=== PATIENT | female | born 1945 | race Caucasian/White ===

== ENCOUNTER 2016-12-15 12:50 | Inpatient (IN) | payer MEDICARE, OTHER ==
[~2016-12-15] VITALS: Ht 152.4 cm; Wt 63.9 kg
[~2016-12-15 12:50] MED LIST: BAYER CHEWABLE81 MG PO; BIOTIN5 MG PO; CRESTOR10 MG PO; GLUCOPHAGE1000 MG PO; HYDROCHLOROTHIA25 MG PO; METOPROLOL TART50 MG PO; OXYBUTYNIN CHLOR5 MG PO; PEPCID20 MG PO; VITAMIN D5000 UNIT PO; ZYRTEC10 MG PO
--- NOTE | 2016-12-15 13:01 | NUR ---
TRANSFERED FROM ADMISSIONS BY W/C. OREINTED TO ROOM. CALL LIGHT IN REACH. WILL CONT. PLAN OF CARE.
[2016-12-15] MEDS ORDERED: NORVASC10 MG PO (13:03)
[2016-12-15] MEDS ORDERED: GLUCOTROL 5 MG T5 MG PO (13:05)
[2016-12-15] MEDS ORDERED: COZAAR100 MG PO (13:06)
[2016-12-15] MEDS ORDERED: K-TAB10 MEQ PO (13:10)
[2016-12-15] MEDS ORDERED: VITAMIN B-1000 MCG/M IM (13:12)
[2016-12-15 13:26] VITALS: BP 96/50; BMI 26.4
[2016-12-15 15:47] LABS: BASOPHILS 0.1 % (0-2); HEMATOCRIT 31.9 % (36.0-48.0); HEMOGLOBIN 10.2 g/dL (12-16); IMMATURE GRANULOCYTES 0.3 % (0-5); LYMPHOCYTES 8.6 % (15-50); MCH 25.9 pg (26.0-34.0); MONOCYTES 3.7 % (2-11); NEUTROPHILS 86.3 % (40-80); PLATELET COUNT 418 10x3/uL (130-400); RBC 3.94 10x6/uL (4.00-5.40); RDW 15.4 % (11.5-14.5); WBC 15.6 10x3/uL (4.8-10.8)
[2016-12-15 16:00] VITALS: BP 99/49
[2016-12-15 16:32] LABS: ALBUMIN 2.3 g/dL (3.4-5.0); ANION GAP 15.2 mmol/L (8-16); BILIRUBIN - TOTAL 0.25 mg/dL (0.2-1.3); CARBON DIOXIDE 24.7 mmol/L (21.0-32.0); CREATININE - SERUM 1.7 mg/dL (0.6-1.3); POTASSIUM - SERUM 3.9 mmol/L (3.5-5.1); PROTEIN - SERUM 7.2 g/dL (6.4-8.2)
[2016-12-15 16:52] LABS: CALCIUM 12.5 mg/dL (8.5-10.1)
[2016-12-15 21:05] VITALS: BP 110/53
--- NOTE | 2016-12-15 22:35 | NUR ---
FSBS 36 - PT IS ASYMPTOMATIC. PT SITTING UP IN BED EATING TURKEY SANDWICH, MILK AND DAHLIA CRACKERS. REPORT GIVEN TO MELVA HATFIELD TO TAKE OVER CARE OF PT. FSBS RECHECKED - 80. PT CONTINUING TO EAT DAHLIA CRACKERS AND MILK. MELVA HATFIELD WILL CONTINUE TO MONITOR.
--- NOTE | 2016-12-15 23:44 | NUR ---
BS RECHECK, 80. PT STATED THAT SHE WAS UNABLE TO EAT THE TURKEY SANDWHICH THAT WAS GIVEN TO HER EARLIER, PT REQUESTING MORE MILK AND GRAHM CRACKERS. GRAHM CRACKERS, MILK AND PEANUTBUTTER GIVEN. WILL CONT TO MONITOR.
[2016-12-16 01:17] VITALS: BP 110/63
--- NOTE | 2016-12-16 04:07 | NUR ---
RESTING WITH EYES CLOSED, RESPERATIONS EVEN, NO S/S DISTRESS NOTED
[2016-12-16 05:10] LABS: BASOPHILS 0.2 % (0-2); EOSINOPHILS 2.6 % (0-7); HEMATOCRIT 28.3 % (36.0-48.0); HEMOGLOBIN 8.9 g/dL (12-16); IMMATURE GRANULOCYTES 0.2 % (0-5); LYMPHOCYTES 11.6 % (15-50); MCH 25.6 pg (26.0-34.0); MCHC 31.4 g/dL (31.0-37.0); MCV 81.3 fL (80.0-100.0); MEAN PLATELET VOLUME 10.7 fL (7.4-10.4); MONOCYTES 7.2 % (2-11); NEUTROPHILS 78.2 % (40-80); PLATELET COUNT 401 10x3/uL (130-400); RBC 3.48 10x6/uL (4.00-5.40); RDW 15.5 % (11.5-14.5); WBC 13.2 10x3/uL (4.8-10.8)
[2016-12-16 05:28] VITALS: BP 90/42
[2016-12-16 05:52] LABS: ANION GAP 12.8 mmol/L (8-16); BILIRUBIN - TOTAL 0.2 mg/dL (0.2-1.3); CARBON DIOXIDE 24.4 mmol/L (21.0-32.0); CREATININE - SERUM 1.7 mg/dL (0.6-1.3); POTASSIUM - SERUM 4.2 mmol/L (3.5-5.1); PROTEIN - SERUM 6.1 g/dL (6.4-8.2)
[2016-12-16 05:53] LABS: CALCIUM 12.1 mg/dL (8.5-10.1)
--- NOTE | 2016-12-16 06:12 | NUR ---
LAB CALLED BS RESULT OF 62, MORNING SNACK PROVIDED. WILL CONT TO MONITOR.
--- NOTE | 2016-12-16 07:35 | NUR ---
PT IN BED WATCHING TV. IV TO LEFT WRIST NS@ 100CC/HR. DENIES PAIN AT THIS TIME. O2 @ 2 LITERS PER NC. PT ATE ALL OF HER SNACK BEFORE BREAKFAT AND SAYS SHE FEELS BETTER. NO C/O VOICED. SR UP X 2 C/L IN REACH. WILL MONITOR.
[2016-12-16 08:02] VITALS: BP 113/51
--- NOTE | 2016-12-16 08:50 | NUR ---
UP SOB EATING BRK. IV PATENT. CALL LIGHT N REACH. WILL CONT. PLAN OF CARE.
[2016-12-16 11:32] VITALS: Ht 152.4 cm; Wt 63.9 kg
[2016-12-16 12:33] VITALS: BP 129/51
[2016-12-16 16:26] VITALS: BP 117/55
--- NOTE | 2016-12-16 19:21 | NUR ---
INITIAL ROUNDS COMPELTED. PT DENIES ANY DISCOMFORT. BED ALARM ON. SR UP X2,CALL LIGHT WITHIN REACH.
[2016-12-16 20:16] VITALS: BP 127/72
--- NOTE | 2016-12-16 20:17 | NUR ---
ADMISSION ASSESSMENT COMPLETED. PT ALERT, ORIENTED TO PERSON AND PLACE. REORIENTED TO TIME AND SITUATION. PT REPEATS CONVERSATION. LUNGS DIMINISHED IN BASES BILAT. NO IV ON INITIAL ROUNDS. IV STARTED #20 TO RFA WITH ATTEMTT X1. PT TOLERATED ACTIVITY WELL. PT REFUSES IV FLUID. PM FSBS 128. NO COVERAGE NEEDED. BED ALARM ON. WILL CONTINUE TO MONITOR. SR UP X2, CALL LIGHT WITHIN REACH.
--- NOTE | 2016-12-16 21:16 | NUR ---
PM FSBS 128. NO COVERAGE NEEDED. PM MEDS GIVEN. ASSISTED PT TO BR. VOIDED MODERATE AMOUNT OF URINE. ASSISTED BACK TO BED. PM SNACK SERVED. WILL CONTINUE TO MONITOR. SR UP X2, CALL LIGHT WITHIN REACH AND BED ALARM ON.
--- NOTE | 2016-12-16 23:47 | NUR ---
PT RESTING WITH EYES CLOSED. RESP EVEN AND REGULAR. SR UP X2, CALL LIGHT WITHIN REACH AND BED ALARM ON.
[2016-12-17 00:02] VITALS: BP 115/48
--- NOTE | 2016-12-17 02:13 | NUR ---
PT RESTING WITH EYES CLOSED. RESP EVEN AND REGULAR. SR UP X2, CALL LIGHT WITHIN REACH.
[2016-12-17 04:50] VITALS: BP 110/50
--- NOTE | 2016-12-17 05:01 | NUR ---
PT RESTING WITH EYES CLOSED. RESP EVEN AND REGULAR. SR UP X2, CALL LIGHT WITHIN REACH AND BED ALARM ON.
--- NOTE | 2016-12-17 06:16 | NUR ---
VSS THROUGHUT NIGHT. PT DENIED ANY DISCOMFORT. NEEDS MET; WILL CONTINUE TO MONITOR.
[2016-12-17 06:46] LABS: BASOPHILS 0.2 % (0-2); EOSINOPHILS 3.4 % (0-7); HEMATOCRIT 25.2 % (36.0-48.0); IMMATURE GRANULOCYTES 0.2 % (0-5); LYMPHOCYTES 12.4 % (15-50); MCH 25.6 pg (26.0-34.0); MCHC 31.7 g/dL (31.0-37.0); MCV 80.8 fL (80.0-100.0); MEAN PLATELET VOLUME 10.4 fL (7.4-10.4); MONOCYTES 7.9 % (2-11); NEUTROPHILS 75.9 % (40-80); PLATELET COUNT 346 10x3/uL (130-400); RBC 3.12 10x6/uL (4.00-5.40); RDW 15.4 % (11.5-14.5)
[2016-12-17 06:47] LABS: WBC 9.7 10x3/uL (4.8-10.8)
[2016-12-17 06:58] LABS: ALBUMIN 1.9 g/dL (3.4-5.0); ANION GAP 11.3 mmol/L (8-16); BILIRUBIN - TOTAL 0.2 mg/dL (0.2-1.3); CALCIUM 11.1 mg/dL (8.5-10.1); CARBON DIOXIDE 24.8 mmol/L (21.0-32.0); CREATININE - SERUM 1.5 mg/dL (0.6-1.3); POTASSIUM - SERUM 4.1 mmol/L (3.5-5.1); PROTEIN - SERUM 5.8 g/dL (6.4-8.2)
--- NOTE | 2016-12-17 07:30 | NUR ---
AM ROUNDS- PT UP TO SIDE OF BED, RECEIVING UPDRAFT, RESP EVEN AND UNLABORED. RT FA IV SL. BED LOW AND WHEELS LOCKED, BEDSIDE RAILS X2. PT DENIES ANY NEEDS AT THIS TIME. CALL LIGHT IN REACH, NAD NOTED, WILL CONTINUE PLAN OF CARE.
[2016-12-17 08:47] VITALS: BP 106/49
--- NOTE | 2016-12-17 09:33 | NUR ---
AM MEDS GIVEN. PT UP TO SIDE OF BED, DENIES ANY NEEDS AT THIS TIME. CALL LIGHT IN REACH, NAD NOTED, WILL CONTINUE TO MONITOR.
--- NOTE | 2016-12-17 11:20 | NUR ---
BLOOD SUGAR OF 276, 10UNITS OF HUMALOG GIVEN PER S/S. PT DENIES ANY NEEDS AT THIS TIME. CALL LIGHT IN REACH, NAD NOTED.
[2016-12-17 12:03] VITALS: BP 115/55
--- NOTE | 2016-12-17 13:48 | NUR ---
IVPB OF LEVAQUIN HUNG AT THIS TIME. ALSO HELPED PT TO BATHROOM AND BACK TO BED. PT DENIES ANY OTHER NEEDS AT THIS TIME. CALL LIGHT IN REACH, NAD NOTED.
[2016-12-17 16:23] VITALS: BP 115/53
--- NOTE | 2016-12-17 17:03 | NUR ---
BLOOD SUGAR OF 163, 4UNITS GIVEN PER S/S. PT REQUESTED TO BE DISCONNECTED FROM IV FLUIDS. PT DISCONNECTED AT THIS TIME. HELPED TO SIDE OF BED, DENIES ANY OTHER NEEDS AT THIS TIME. CALL LIGHT IN REACH, NAD NOTED.
[2016-12-17 20:43] VITALS: BP 131/58
--- NOTE | 2016-12-17 22:24 | NUR ---
INITIAL ROUNDS COMPLETED AT 1915 HRS. PT TALKING TO FAMILY ON THE PHINE. ASSESSMENT COMPLETED AT 5HRS. VSS. IV TO RFA WITH NS AT 100CC/HR. IV PATENT. O2 2LNC. LUNGS DIMINISHED IN BASES BILAT. UP TO BR WITH ASSIST. PM FSBS 93. NO COVERGE NEEDED. PM MEDS GIVEN. MILK AND DAHLIA CRACKERS GVIEN PER REEQUEST. EXPLAINED AM'S CT GUIDED BIOPSY OF L LUNG MASS AND NPO AFTER MIDNIGHT. PT NEEDS FURTHER EDUCATION. IV SL AT THAT TIME PER PT'S REQUEST. PT CURRETNLY RESTING WITH EYES CLOSED. RESP EVEN AND REGULAR. SR UP X2, CALL LIGHT WITHIN REACH AND BED ALARM ON.
[2016-12-18] VITALS (12 sets, daily range): BP systolic 101–148; BP diastolic 48–75
--- NOTE | 2016-12-18 00:19 | NUR ---
PT RESTING WITH EYES CLOSED. RESP EVEN AND REGULAR. SR UP X2, CALL LIGHT WITHIN REACH.
--- NOTE | 2016-12-18 02:28 | NUR ---
PT RESTING WITH EYES CLOSED. RESP EVEN AND REGULAR. SR UP X2, CALL LIGHT WITHIN REACH.
--- NOTE | 2016-12-18 04:16 | NUR ---
PT UP TO BR WITH ASSIST. VOISED MODERATE AMOUNT OF URINE. ASISTED BACK TO BED. GAIT SLIGHTLY UNSTEADY. PT VERY UNHAPPY ABOUT BED ALARM. REINFORCED RATIONALE FOR BED ALARM. WILL CONTINUE TO MONITOR.
[2016-12-18 05:34] LABS: BASOPHILS 0.4 % (0-2); EOSINOPHILS 4.2 % (0-7); HEMATOCRIT 26.5 % (36.0-48.0); HEMOGLOBIN 8.4 g/dL (12-16); IMMATURE GRANULOCYTES 0.2 % (0-5); LYMPHOCYTES 10.8 % (15-50); MCH 25.6 pg (26.0-34.0); MCHC 31.7 g/dL (31.0-37.0); MCV 80.8 fL (80.0-100.0); MEAN PLATELET VOLUME 10.3 fL (7.4-10.4); MONOCYTES 7.3 % (2-11); NEUTROPHILS 77.1 % (40-80); PLATELET COUNT 348 10x3/uL (130-400); RBC 3.28 10x6/uL (4.00-5.40); RDW 15.5 % (11.5-14.5); WBC 11.1 10x3/uL (4.8-10.8)
[2016-12-18 05:46] LABS: ALBUMIN 2.1 g/dL (3.4-5.0); ANION GAP 13.6 mmol/L (8-16); BILIRUBIN - TOTAL 0.27 mg/dL (0.2-1.3); CALCIUM 10.8 mg/dL (8.5-10.1); CARBON DIOXIDE 24.3 mmol/L (21.0-32.0); CREATININE - SERUM 1.3 mg/dL (0.6-1.3); POTASSIUM - SERUM 3.9 mmol/L (3.5-5.1); PROTEIN - SERUM 5.9 g/dL (6.4-8.2)
--- NOTE | 2016-12-18 06:39 | NUR ---
VSS THROUGHOUT NIGHT. HIBICLENS BATH DONE;BED LINENS CAHNGED. LEMON SWAB STICKS GIVEN FOR C/O DRY MOUTH. PT NPO FOR AM CT GUIDED BIOPSY OF UPPER L LUNG. NEEDS MET; WILL CONTINUE TO MONITOR.
--- NOTE | 2016-12-18 07:15 | NUR ---
REPORT RECEIVED. PT RESTING QUILETY, RR EVEN AND UNLABORED. EDUCATED PT ON PROCEDURE SCHEDULED FOR THIS MORNING. PT VERBALIZED UNDERSTANDING. DENIES FURTHER NEEDS, WILL CTM.
--- NOTE | 2016-12-18 07:30 | NUR ---
SPOKE TO SPECIAL PROCEDURES PERSONAL. TOLD ME THAT I COULD GIVE MORNING MEDS WITH A SIP OF WATER AND TO HOLD LOVENOX.
[2016-12-18 08:06] LABS: APTT 32.6 SECONDS (22.8-39.4); INR 1.12 (0.85-1.17); PROTIME 14.3 SECONDS (11.6-15.0)
--- NOTE | 2016-12-18 11:15 | NUR ---
PTS CURRENT IV INFILTRATED. RESITED 20G IV TO LEFT FA X2 STICK. PT TO BE TRANSFERED TO PROCEDURE, WILL CTM UPON RETURN FROM PROCEDURE.
--- NOTE | 2016-12-18 12:30 | NUR ---
PT RECEIVED TO ROOM FROM PROCEDURE. RR EVEN AND UNLABORED, VSS EXCEPT FOR O2 SAT. ON ROOM AIR, PT AT 90. PLACED PT ON 2L O2. PT DENIES NEEDS AT THIS TIME. DRESSING ON LEFT SHOULDER CDI. PLACED ON FREQUENT VS. PT REQUEST FOOD AND DRINK. WILL GIVE AND CTM.
--- NOTE | 2016-12-18 18:30 | NUR ---
PT RESTING QUIETLY, RR EVEN AND UNLABORED. PT DENIES NEEDS AT THIS TIME. VSS SINCE PROCEDURE, DRESSING CDI. WILL GIVE REPORT ON PT CONDITION FOR THE DAY.
--- NOTE | 2016-12-18 20:29 | NUR ---
PATIENT ALERT AND ORIENTED, FAMILY IN ROOM. O2 AT 2L. DENIES ANY NEEDS AT THIS TIME. CALL LIGHT IN REACH, BED IN LOW POSITION.
--- NOTE | 2016-12-18 22:32 | NUR ---
REFUSED SLIDING SCALE INSULIN, FS BS 230 AT 2150. DENIES ANY OTHER NEEDS AT THIS TIME. BED IN LOW POSITION, BEDSIDE TABLE AND CALL LIGHT IN REACH.
--- NOTE | 2016-12-19 01:30 | NUR ---
PATIENT RESTING COMFORTABLY AT THIS TIME. BED IN LOW POSITION, CALL LIGHT IN REACH.
[2016-12-19 02:05] VITALS: BP 122/69
[2016-12-19 05:48] LABS: BASOPHILS 0.3 % (0-2); EOSINOPHILS 4.3 % (0-7); HEMATOCRIT 25.7 % (36.0-48.0); HEMOGLOBIN 8.2 g/dL (12-16); IMMATURE GRANULOCYTES 0.2 % (0-5); LYMPHOCYTES 8.9 % (15-50); MCH 25.6 pg (26.0-34.0); MCHC 31.9 g/dL (31.0-37.0); MCV 80.3 fL (80.0-100.0); MEAN PLATELET VOLUME 10.8 fL (7.4-10.4); MONOCYTES 6.7 % (2-11); NEUTROPHILS 79.6 % (40-80); PLATELET COUNT 337 10x3/uL (130-400); RDW 15.5 % (11.5-14.5); WBC 11.5 10x3/uL (4.8-10.8)
[2016-12-19 06:13] LABS: ALBUMIN 1.9 g/dL (3.4-5.0); ANION GAP 12.1 mmol/L (8-16); BILIRUBIN - TOTAL 0.3 mg/dL (0.2-1.3); CALCIUM 10.8 mg/dL (8.5-10.1); CARBON DIOXIDE 23.5 mmol/L (21.0-32.0); CREATININE - SERUM 1.4 mg/dL (0.6-1.3); POTASSIUM - SERUM 3.6 mmol/L (3.5-5.1); PROTEIN - SERUM 6.1 g/dL (6.4-8.2)
--- NOTE | 2016-12-19 07:00 | NUR ---
RECEIVED REPORT. ASSUMED CARE OF PATIENT. PATIENT RESTING IN BED WITH EYES OPEN. STUDENT NURSE AT BEDSIDE. CALL LIGHT WITHIN REACH. NO DISTRESS. IV FLUIDS INFUSING ORDERED.
[2016-12-19 08:00] VITALS: BP 126/66
--- NOTE | 2016-12-19 09:45 | NUR ---
DR. ALEGRIA AT BEDSIDE FOR ROUNDS. NO DISTRESS.
--- NOTE | 2016-12-19 11:35 | NUR ---
FSBS 124. NO INSULIN COVERAGE PER SLIDING SCALE. RESTING IN BED WITH EYES OPEN. NO DISTRESS.
[2016-12-19 12:00] VITALS: BP 137/82
--- NOTE | 2016-12-19 15:00 | NUR ---
INFORMED PATIENT THAT BLOOD BANK HAS BLOOD READY TO BE TRANSFUSED. PATIENT CONFUSED AND DOES NOT HAVE ANY RECOLLECTION OF PREVIOUS CONVERSATIONS OF THE NEED FOR BLOOD TRANSFUSION.
--- NOTE | 2016-12-19 16:46 | NUR ---
FSBS 114. NO INSULIN COVERAGE PER SLIDING SCALE.
[2016-12-19 17:10] VITALS: BP 155/68
--- NOTE | 2016-12-19 18:30 | NUR ---
PATIENT IS HAVING BOUTS OF CONFUSION HOWEVER PATIENT IS ALERT/ORIENTED X 4. PATIENT ORDERED TO HAVE 2 UNITS PRIOR TO DISCHARGING HOME. THIS NURSE PRESENTED CONSENTS TO PATIENT AT THIS TIME AND PATIENT DID NOT REMEMBER ANY CONVERSATIONS TODAY ABOUT RECEIVING A BLOOD TRANSFUSION BUT IS ALERT/ORIENTED X 4. PATIENT IS MAKING ACCUSATIONS THAT WE ARE FINDING MORE THINGS TO DO TO HER BEFORE LETTING HER GO HOME AND THAT IS ALL SHE WANTS TO DO IS JUST GO HOME. PATIENT SNATCHED INK PEN AND CONSENT OUT OF THIS NURSES HAND AND SIGNED.
--- NOTE | 2016-12-19 18:41 | NUR ---
ATTEMPTED TO CALL PATIENTS DAUGHTER AT THIS TIME TO QUESTION HER ABOUT PATIENTS BOUTS OF CONFUSION. CALLED TWICE, NO ANSWER. MESSAGE NOT LEFT.
--- NOTE | 2016-12-19 19:20 | NUR ---
PT'S SON IN LAW CALLED, RIGO RAMOSLEY, . PT'S DAUGHTER IS ON VACATION. PLEASE CALL SON IN LAW FOR ANYTHING.
--- NOTE | 2016-12-19 19:26 | NUR ---
REPORT GIVEN TO ONCOMING NURSE. NO DISTRESS.
--- NOTE | 2016-12-19 19:27 | NUR ---
BLOOD CONSENT PASSED TO ONCOMING NURSE AND REPORT GIVEN TO PATIENT SNATCHING CONSENT FROM THIS NURSES HAND AND SIGNED THE CONSENT EVEN THOUGH PATIENT STATES SHE DOES NOT REMEMBER THE CONVERSATIONS THAT TOOK PLACE DURING THE DAY TO WHY SHE NEEDS BLOOD HOWEVER PATIENT IS ALERT/ORIENTED X 4.
--- NOTE | 2016-12-19 21:07 | NUR ---
PATIENT HAS AN ORDER TO RECIEVE 2 UNITS OF BLOOD, SHE IS REFUSING TO GET THE BLOOD TRANSFUSION. I SPOKE WITH DR ALEGRIA AND SHE SAID TO CANCEL THE ORDER. PATIENT VERBALIZES UNDERSTANDING. CALL LIGHT IN REACH. FAMILY MEMEBER RIGO WAS NOTIFIED.
--- NOTE | 2016-12-20 00:02 | NUR ---
MEDICAL RESEARCH ASSISTANT AT BED SIDE TO OBTAIN VITALS, WILL CONT TO MONITOR.
[2016-12-20 04:39] VITALS: BP 146/65
[2016-12-20 05:53] LABS: BASOPHILS 0.3 % (0-2); EOSINOPHILS 3.7 % (0-7); HEMATOCRIT 25.9 % (36.0-48.0); HEMOGLOBIN 8.3 g/dL (12-16); IMMATURE GRANULOCYTES 0.2 % (0-5); LYMPHOCYTES 8.9 % (15-50); MCH 25.5 pg (26.0-34.0); MCV 79.7 fL (80.0-100.0); MEAN PLATELET VOLUME 10.4 fL (7.4-10.4); MONOCYTES 7.1 % (2-11); NEUTROPHILS 79.8 % (40-80); PLATELET COUNT 327 10x3/uL (130-400); RBC 3.25 10x6/uL (4.00-5.40); RDW 15.6 % (11.5-14.5); WBC 11.8 10x3/uL (4.8-10.8)
[2016-12-20 06:25] LABS: BILIRUBIN - TOTAL 0.28 mg/dL (0.2-1.3); CALCIUM 10.8 mg/dL (8.5-10.1); CARBON DIOXIDE 22.3 mmol/L (21.0-32.0); CREATININE - SERUM 1.3 mg/dL (0.6-1.3); POTASSIUM - SERUM 3.3 mmol/L (3.5-5.1); PROTEIN - SERUM 6.3 g/dL (6.4-8.2)
[2016-12-20 08:24] VITALS: BP 146/70
[2016-12-20 11:55] VITALS: BP 130/71
[2016-12-20 15:27] VITALS: BP 134/59
--- NOTE | 2016-12-20 16:00 | NUR ---
RESTING IN BED. ALERT AND ORIENTED X4. ANXOUS TO GO HOME. NO DC ORDER. DENIES ANY NEEDS. CONTINUE PLAN OF CARE AND SAFETY PRECAUTIONS. REFUSES IV RESITE.
--- NOTE | 2016-12-20 17:04 | NUR ---
Patient Name: JOSE STEVENS Admission Status: Elective Accout number: [id number] Admission Date: 12-15-2016 : 1945 Admission Diagnosis:PNEUMONIA, UNSPECIFIED ORGANISM Attending: LISA TORRES Current LOS: 5 Anticipated DC Date: 12-20-2016 Planned Disposition: Home Primary Insurance: MEDICARE A & B Discharge Planning Comments: * Is the patient Alert and Oriented? Yes 0 * How many steps to enter\exit or inside your home? 4 W/RAIL 0 * PCP DR. DIAMOND 0 * Pharmacy MEDS BY MAIL 0 * Preadmission Environment Home Alone 0 * ADLs Independent 0 * Equipment Cane Oxygen Walker 0 * Other Equipment HOME OXYGEN WITH HUMIDITY UNKNOWN MEDICAL EQUIPMENT PROVIDER ON [facility] IN [place] 0 * List name and contact numbers for known caregivers / representatives who currently or will assist patient after discharge: PANCHO IRVIN, DTR, 0 * Community resources currently utilized None Other 0 * Please name any agencies selected above. NONE 0 * Additional services required to return to the preadmission environment? No 0 * Can the patient safely return to the preadmission environment? Yes 0 * Has this patient been hospitalized within the prior 30 days at any hospital? No 0 CM MET WITH PT IN ROOM TO DISCUSS DISCHARGE PLANNING AND NEEDS. PT REPORTS LIVING AT HOME INDEPENDENTLY AND ALONE. PT HAS CANE, WALKER AND OXYGEN WITH HUMIDITY. PT HAS NO OUTSIDE SERVICES ASSISTING IN THE HOME. CM DISCUSSED AVAILABILITY OF HOME HEALTH, REHAB SERVICES AND MEDICAL EQUIPMENT. PT DENIES DISCHARGE NEEDS, REPORTS HER SON IN LAW WILL PICK HER UP FOR DISCHARGE HOME. IMPORTANT MESSAGE FROM MEDICARE PROVIDED AND EXPLAINED. Drilling Field Operator: Nain Vasquez
--- NOTE | 2016-12-20 19:34 | NUR ---
RESUMED CARE OF PT, STANDING AT THE NURSES STATION FULLY DRESSED WITH SON IN LAW READY TO GO HOME. STATES THAT DR. ALEGRIA SAID SHE COULD GO HOME, AFTER READING BOTH PROGESS NOTES FROM DR. ALEGRIA AND DR. MASTERS I EXPLAINED THE PLAN OF CARE TO PT. EXPLAINED TO HER THAT OUR PLAN IS TO HAVE HOME HEALTH SET UP IN HER HOME BEFORE SHE IS TO DISCHARGE. SHE STATES THAT SHE CAN DO ALL OF THAT AT HOME BY HERSELF AND WISHES TO LEAVE AGAINST MEDICAL ADVICE. DENIES TALKING TO ANY PHYSICIANS. PT IS OF SOUND MIND, AND DOES NOT WANT TO STAY HERE ANY LONGER. AMA FORMS SIGNED AND MIKI KEBEDE PAGED, AWAITING CALL BACK.
--- NOTE | 2016-12-20 19:43 | NUR ---
MIKI CALLED BACK AND STATES THAT SHE CAN GO HOME, CONTINUE HOME MEDS AND FOLLOW UP WITH HOME HEALTH IN AM.
--- NOTE | 2016-12-21 09:44 | NUR ---
Patient Name: JOSE STEVENS Encounter No: [id number] : 1945 Primary Insurance: MEDICARE A & B Anticipated DC Date: 12-20-2016 Planned Disposition: Home WITH HOME HEALTH External Planned Provider: [facility] DCP follow-up note: CM RECEIVED DISCHARGE ORDER, CALLED PT AT HOME, , DISCUSSED HOME HEALTH QUALIFICATION, SERVICES AND PROVIDER OPTIONS. PT WILL ACCEPT HOME HEALTH, HAS NO PREFERENCE ON PROVIDER. CHOICE LETTER COMPLETED BY EFRAIN. EFRAIN CALLED [facility] IN [place], , SPOKE TO KRIS WHO REPORTS SHE WILL REVIEW REFERRAL FOR ACCEPTANCE DETERMINATION WITH PLAN TO ADMIT TOMORROW. CM FAXED REFERRAL TO [facility] IN [place] AT [phone]. CM CALLED PT AT HOME, NOTIFIED OF HOME HEALTH ADMIT TOMRROW AT HOME, PT IN AGREEMENT WITH ADMIT TOMORROW. CM OFFERED HOME HEALTH NUMBER TO PT; PT DENIES FURHTER NEEDS. Nain Vasuqez, CASE MANAGEMENT
== END 2016-12-20 19:46 | disposition home or self-care (01) | DRG 180 ==
LOC: D.M2 12:50
PROVIDERS: Emergency Medicine; Radiology Diagnostic Radiology; ADMIT Family Medicine Adult Medicine
PROC: 0BBL3ZX Excision of Left Lung, Percutaneous Approach, Diagnostic (ICD-10-PCS; principal; 2016-12-18 11:30)
DX: C34.92 Malignant neoplasm of unspecified part of left bronchus or lung (principal); J18.9 Pneumonia, unspecified organism; J44.0 Chronic obstructive pulmonary disease with (acute) lower respiratory infection; J44.1 Chronic obstructive pulmonary disease with (acute) exacerbation; K21.9 Gastro-esophageal reflux disease without esophagitis; D50.9 Iron deficiency anemia, unspecified; E10.649 Type 1 diabetes mellitus with hypoglycemia without coma; Z79.4 Long term (current) use of insulin; E83.52 Hypercalcemia; E10.22 Type 1 diabetes mellitus with diabetic chronic kidney disease; I12.9 Hypertensive chronic kidney disease with stage 1 through stage 4 chronic kidney disease, or unspecified chronic kidney disease; N18.9 Chronic kidney disease, unspecified; I25.10 Atherosclerotic heart disease of native coronary artery without angina pectoris; Z86.73 Personal history of transient ischemic attack (TIA), and cerebral infarction without residual deficits; Z95.1 Presence of aortocoronary bypass graft; Z72.0 Tobacco use

== ENCOUNTER 2017-01-25 11:11 | Inpatient (IN) | payer MEDICARE, OTHER ==
[~2017-01-25] VITALS: Ht 152.4 cm; Wt 60.9 kg
[~2017-01-25 11:11] MED LIST changes: +COZAAR100 MG PO; +GLUCOTROL 5 MG T5 MG PO; +K-TAB10 MEQ PO; +NORVASC10 MG PO; +VITAMIN B-1000 MCG/M IM
[2017-01-25 11:57] LABS: BASOPHILS 0.1 % (0-2); EOSINOPHILS 2.5 % (0-7); HEMATOCRIT 30.8 % (36.0-48.0); HEMOGLOBIN 9.7 g/dL (12-16); IMMATURE GRANULOCYTES 0.4 % (0-5); LYMPHOCYTES 8.7 % (15-50); MCH 25.7 pg (26.0-34.0); MCHC 31.5 g/dL (31.0-37.0); MCV 81.7 fL (80.0-100.0); MEAN PLATELET VOLUME 9.8 fL (7.4-10.4); MONOCYTES 5.6 % (2-11); NEUTROPHILS 82.7 % (40-80); RBC 3.77 10x6/uL (4.00-5.40); RDW 14.5 % (11.5-14.5); WBC 15.4 10x3/uL (4.8-10.8)
[2017-01-25 11:58] LABS: PLATELET COUNT 449 10x3/uL (130-400)
[2017-01-25 12:18] LABS: ALBUMIN 2.2 g/dL (3.4-5.0); ALKALINE PHOSPHATASE 100 U/L (46-116); ALT (SGPT) 9 U/L (10-68); BILIRUBIN - TOTAL 0.31 mg/dL (0.2-1.3); CARBON DIOXIDE 28.5 mmol/L (21.0-32.0); CHLORIDE - SERUM 101 mmol/L (98-107); CKMB 0.1 U/L (0.0-3.6); CREATINE KINASE 14 UL (21-215); CREATININE - SERUM 2.1 mg/dL (0.6-1.3); POTASSIUM - SERUM 3.1 mmol/L (3.5-5.1); PROTEIN - SERUM 7.2 g/dL (6.4-8.2); SODIUM 137 mmol/L (136-145); UREA NITROGEN 16 mg/dL (7-18); eGFR NON AFRICAN AMERICAN 25 mL/min (90-120)
[2017-01-25 12:35] LABS: CALC OSMOLALITY 283 mosm/kg (275-300); GLUCOSE 264 mg/dL (74-106)
[2017-01-25 12:36] LABS: TROPONIN-I < 0.017 ng/mL (0.000-0.060)
[2017-01-25 12:37] LABS: CALCIUM 14.9 mg/dL (8.5-10.1)
[2017-01-25] MEDS ORDERED: ZANAFLEX2 M1 PO (16:47)
[2017-01-25 16:48] VITALS: BP 175/84; BMI 26.0
[2017-01-25 17:39] LABS: APPEARANCE HAZY (CLEAR); BACTERIA MODERATE /hpf (NONE SEEN); BILIRUBIN NEGATIVE (NEGATIVE); COLOR YELLOW (YELLOW); GLUCOSE NEGATIVE (NEGATIVE); GRANULAR CAST 0-5 /lpf (NONE SEEN); KETONE NEGATIVE (NEGATIVE); MUCUS <1+ /lpf (NONE SEEN); NITRITE NEGATIVE (NEGATIVE); PROTEIN 2+ mg/dL (NEGATIVE); RED CELLS - URINE 0-5 /hpf (0-5); SPECIFIC GRAVITY 1.025 (1.005-1.020); UROBILINOGEN NORMAL (NORMAL)
[2017-01-25 20:00] VITALS: BP 121/64
--- NOTE | 2017-01-25 22:43 | NUR ---
REC'D LYING IN BED. STATED THAT SHE IS HUNGRY, WILL GET HER SOMETHING. ALERT AND ORIENTED X4. DENIED PAIN AT THIS TIME. NO DISTRESS NOTED. INSTRUCTED TO CALL IF NEEDED ANYTHING, VERBALIZED UNDERSTANDING. BED LOW, LOCKED CALL LIGHT IN REACH, ALARM ON.
[2017-01-26] VITALS (7 sets, daily range): BP systolic 136–183; BP diastolic 73–83; Ht 152.4 cm; Wt 60.9 kg
--- NOTE | 2017-01-26 05:35 | NUR ---
PATIENT IS RESTING QUIETLY WITH EYES CLOSED. NO SIGNS OF DISTRESS NOTED. PATIENT IS RECIEVING OXYGEN VIA NASAL CANNULA AT 2L/MIN. RESPIRIATONS ARE EVEN AND UNLABORED.
[2017-01-26 06:18] LABS: BASOPHILS 0.1 % (0-2); HEMATOCRIT 29.8 % (36.0-48.0); HEMOGLOBIN 9.2 g/dL (12-16); IMMATURE GRANULOCYTES 0.3 % (0-5); LYMPHOCYTES 10.5 % (15-50); MCH 25.6 pg (26.0-34.0); MCHC 30.9 g/dL (31.0-37.0); MCV 82.8 fL (80.0-100.0); MEAN PLATELET VOLUME 10.1 fL (7.4-10.4); MONOCYTES 5.9 % (2-11); NEUTROPHILS 80.2 % (40-80); PLATELET COUNT 415 10x3/uL (130-400); RDW 14.5 % (11.5-14.5); WBC 13.7 10x3/uL (4.8-10.8)
[2017-01-26 06:46] LABS: BILIRUBIN - TOTAL 0.4 mg/dL (0.2-1.3); CARBON DIOXIDE 26.3 mmol/L (21.0-32.0); CREATININE - SERUM 1.9 mg/dL (0.6-1.3); MAGNESIUM - SERUM 1.9 mg/dL (1.8-2.4); PROTEIN - SERUM 6.1 g/dL (6.4-8.2)
--- NOTE | 2017-01-26 07:09 | NUR ---
PT SEEN AND ASSESSED. MONITOR SHOWS SR RATE 93. CURRENTLY DRY AT PRESENT BUT HAS BEEN INCONTINENT DURING THE NIGHT. OXYGEN AT 2L NC WITH SAT OF 98%. NO SOB NOTED OR VOICED. ALL FALL PRECAUTIONS IN PLACE. CALL LIGHT IN REACH. SCDS IN PLACE.
[2017-01-26 07:30] LABS: ANION GAP 10.3 mmol/L (8-16); POTASSIUM - SERUM 3.6 mmol/L (3.5-5.1)
[2017-01-26 07:32] LABS: CALCIUM 14.1 mg/dL (8.5-10.1)
[2017-01-26] MEDS ORDERED: GLUCOPHAGE1000 MG PO (16:11)
[2017-01-26] MEDS ORDERED: CRESTOR10 MG PO (16:11)
[2017-01-26] MEDS ORDERED: BIOTIN5 MG PO (16:11)
[2017-01-26] MEDS ORDERED: HYDROCHLOROTHIA25 MG PO (16:11)
[2017-01-26] MEDS ORDERED: OXYBUTYNIN CHLOR5 MG PO (16:12)
[2017-01-26] MEDS ORDERED: METOPROLOL TART50 MG PO (16:12)
[2017-01-26] MEDS ORDERED: VITAMIN D5000 UNIT PO (16:12)
[2017-01-26] MEDS ORDERED: NORVASC10 MG PO (16:12)
[2017-01-26] MEDS ORDERED: COZAAR100 MG PO (16:13)
[2017-01-26] MEDS ORDERED: K-TAB10 MEQ PO (16:13)
[2017-01-26] MEDS ORDERED: GLUCOTROL 5 MG T5 MG PO (16:13)
--- NOTE | 2017-01-26 22:26 | NUR ---
REC'D LYING IN BED. ALERT AND ORIENTED X1. NO DISTRESS NOTED. INSTRUCTED TO CALL IF NEEDED ANYTHING, VERBALIZED UNDERSTANDING. WILL CONT TO MONITOR. DENIED PAIN AT THIS TIME. BED LOW, LOCKED, CALL LIGHT IN REACH, ALARM ON.
--- NOTE | 2017-01-26 23:45 | NUR ---
PATIENT IS RESTING QUIETLY WITH EYES CLOSED. NO SIGNS OF DISTRESS NOTED. BED IN LOWEST POSITION, CALL LIGHT IN REACH. BED RAILS UP X'S 2. SISSY ALARM ON.
--- NOTE | 2017-01-27 01:47 | NUR ---
RESTARTED IV TO LEFT FORARM, PATENT AND FLUSHES. IV TO RIGHT HAND INFILTRATED. DC'D WITH CATH STILL INTACT. PT TOLERATED WELL. WILL CONT TO MONITOR.
[2017-01-27 03:30] VITALS: BP 176/80
[2017-01-27 05:16] LABS: BASOPHILS 0.2 % (0-2); EOSINOPHILS 3.4 % (0-7); HEMATOCRIT 28.1 % (36.0-48.0); HEMOGLOBIN 8.8 g/dL (12-16); IMMATURE GRANULOCYTES 0.2 % (0-5); LYMPHOCYTES 12.3 % (15-50); MCH 26.3 pg (26.0-34.0); MCHC 31.3 g/dL (31.0-37.0); MCV 83.9 fL (80.0-100.0); MEAN PLATELET VOLUME 10.8 fL (7.4-10.4); MONOCYTES 7.2 % (2-11); NEUTROPHILS 76.7 % (40-80); PLATELET COUNT 373 10x3/uL (130-400); RBC 3.35 10x6/uL (4.00-5.40); RDW 14.6 % (11.5-14.5); WBC 12.4 10x3/uL (4.8-10.8)
[2017-01-27 05:39] LABS: ALBUMIN 1.7 g/dL (3.4-5.0); ANION GAP 9.7 mmol/L (8-16); BILIRUBIN - TOTAL 0.3 mg/dL (0.2-1.3); CARBON DIOXIDE 24.4 mmol/L (21.0-32.0); CREATININE - SERUM 1.8 mg/dL (0.6-1.3); POTASSIUM - SERUM 3.1 mmol/L (3.5-5.1); PROTEIN - SERUM 6.2 g/dL (6.4-8.2)
[2017-01-27 05:41] LABS: CALCIUM 12.6 mg/dL (8.5-10.1)
[2017-01-27 07:03] VITALS: BP 152/66
--- NOTE | 2017-01-27 07:55 | NUR ---
PT REC'D FROM MELVA CARRION. RESTING IN BED WITH EYES CLOSED. NO SIGNS OF DISTRESS. RESP EVEN AND UNLABORED. NO SIGNS OF DISTRESS. BED LOW, CALL LIGHT IN REACH, DENIES NEEDS. CPOC.
[2017-01-27 11:10] VITALS: BP 164/77
--- NOTE | 2017-01-27 14:30 | NUR ---
LYING IN BED,WITHOUT DISTRESS.
[2017-01-27 14:58] VITALS: BP 162/81
--- NOTE | 2017-01-27 18:40 | NUR ---
PT RESTING IN BED WITH EYES CLOSED. NO SIGNS OF DISTRESS. PUMP CLEARED OF IVF. RESP EVEN AND UNLABORED. NO SIGNS OF DISTRESS. BED LOW, CALL LIGHT IN REACH, DENIES NEEDS. CPOC.
[2017-01-27 20:00] VITALS: BP 151/65
[2017-01-28] VITALS: BP 151/67
[2017-01-28 05:00] VITALS: BP 159/66
[2017-01-28 06:16] LABS: BASOPHILS 0.1 % (0-2); EOSINOPHILS 4.3 % (0-7); HEMATOCRIT 26.2 % (36.0-48.0); HEMOGLOBIN 8.2 g/dL (12-16); IMMATURE GRANULOCYTES 0.3 % (0-5); LYMPHOCYTES 11.2 % (15-50); MCH 26.1 pg (26.0-34.0); MCHC 31.3 g/dL (31.0-37.0); MCV 83.4 fL (80.0-100.0); MEAN PLATELET VOLUME 10.5 fL (7.4-10.4); MONOCYTES 6.6 % (2-11); NEUTROPHILS 77.5 % (40-80); PLATELET COUNT 358 10x3/uL (130-400); RBC 3.14 10x6/uL (4.00-5.40); RDW 14.8 % (11.5-14.5); WBC 11.5 10x3/uL (4.8-10.8)
[2017-01-28 06:57] LABS: ALBUMIN 1.6 g/dL (3.4-5.0); ANION GAP 12.6 mmol/L (8-16); BILIRUBIN - TOTAL 0.2 mg/dL (0.2-1.3); CALCIUM 11.3 mg/dL (8.5-10.1); CARBON DIOXIDE 21.9 mmol/L (21.0-32.0); CREATININE - SERUM 1.8 mg/dL (0.6-1.3); POTASSIUM - SERUM 3.5 mmol/L (3.5-5.1); PROTEIN - SERUM 5.6 g/dL (6.4-8.2)
[2017-01-28 09:02] VITALS: BP 158/70
--- NOTE | 2017-01-28 11:01 | NUR ---
LYING IN BED,WITHOUT DISTRESS.CALL LIGHT IN REACH
[2017-01-28 11:49] VITALS: BP 114/60
[2017-01-28 16:49] VITALS: BP 156/60
[2017-01-28 20:00] VITALS: BP 133/52
[2017-01-29] VITALS (7 sets, daily range): BP systolic 125–187; BP diastolic 50–74
[2017-01-29 05:56] LABS: BASOPHILS 0.1 % (0-2); EOSINOPHILS 2.7 % (0-7); HEMATOCRIT 25.7 % (36.0-48.0); IMMATURE GRANULOCYTES 0.3 % (0-5); LYMPHOCYTES 9.4 % (15-50); MCH 25.9 pg (26.0-34.0); MCHC 31.1 g/dL (31.0-37.0); MCV 83.2 fL (80.0-100.0); MEAN PLATELET VOLUME 10.3 fL (7.4-10.4); MONOCYTES 8.3 % (2-11); NEUTROPHILS 79.2 % (40-80); PLATELET COUNT 359 10x3/uL (130-400); RBC 3.09 10x6/uL (4.00-5.40); RDW 14.6 % (11.5-14.5); WBC 14.3 10x3/uL (4.8-10.8)
[2017-01-29 06:13] LABS: ALBUMIN 1.6 g/dL (3.4-5.0); ANION GAP 9.6 mmol/L (8-16); BILIRUBIN - TOTAL 0.23 mg/dL (0.2-1.3); CARBON DIOXIDE 22.8 mmol/L (21.0-32.0); CREATININE - SERUM 1.7 mg/dL (0.6-1.3); POTASSIUM - SERUM 3.4 mmol/L (3.5-5.1); PROTEIN - SERUM 5.5 g/dL (6.4-8.2)
--- NOTE | 2017-01-29 07:00 | NUR ---
REPORT RECEIVED, ASSUMED CARE OF PT. RESTING WITH EYES SHUT, EASILY AROUSED, NO NEEDS VOICED AT THIS TIME. BED IN LOWEST POSITION, SIDE RAILS UP X 2, CALL LIGHT WITHIN REACH, BED ALARM ON.
--- NOTE | 2017-01-30 03:21 | NUR ---
ASSESSED, PT IS AWAKE HAVING HER VITAL SIGNS TAKEN. DO DISTRESS NOTED AND SHE IS RESTING WELL. THE BED IS LOW, RAILS UP X'S 2 WITH THE CALL LIGHT AT HAND.
[2017-01-30 03:58] VITALS: BP 154/75
[2017-01-30 05:58] LABS: BASOPHILS 0.1 % (0-2); EOSINOPHILS 1.6 % (0-7); HEMOGLOBIN 8.4 g/dL (12-16); IMMATURE GRANULOCYTES 0.3 % (0-5); LYMPHOCYTES 7.3 % (15-50); MCH 25.8 pg (26.0-34.0); MCHC 31.1 g/dL (31.0-37.0); MCV 83.1 fL (80.0-100.0); MEAN PLATELET VOLUME 10.6 fL (7.4-10.4); MONOCYTES 5.6 % (2-11); NEUTROPHILS 85.1 % (40-80); PLATELET COUNT 351 10x3/uL (130-400); RBC 3.25 10x6/uL (4.00-5.40); RDW 14.8 % (11.5-14.5); WBC 16.5 10x3/uL (4.8-10.8)
[2017-01-30 06:24] LABS: ANION GAP 10.2 mmol/L (8-16); POTASSIUM - SERUM 3.2 mmol/L (3.5-5.1)
[2017-01-30 06:37] LABS: ALBUMIN 1.5 g/dL (3.4-5.0); BILIRUBIN - TOTAL 0.2 mg/dL (0.2-1.3); CALCIUM 11.2 mg/dL (8.5-10.1); CREATININE - SERUM 1.6 mg/dL (0.6-1.3); PROTEIN - SERUM 5.6 g/dL (6.4-8.2)
[2017-01-30 09:32] VITALS: BP 140/65
--- NOTE | 2017-01-30 10:55 | NUR ---
NUTRITION F/U CHART REVIEWED. PT CURRENTLY NPO FOR PROCEDURE. WILL PROVIDE DIET WHEN RESUMED, MONITOR PO INTAKE. RD FOLLOWING
--- NOTE | 2017-01-30 12:56 | NUR ---
OFF FLOOR FOR PORT PLACEMENT. HAS BEEN NPO ALL MORNING
[2017-01-30 13:27] VITALS: BP 147/67
--- NOTE | 2017-01-30 14:25 | NUR ---
BACK TO FLOOR FROM HAVING PORT PLACED
[2017-01-30 14:42] VITALS: BP 132/59
--- NOTE | 2017-01-30 15:13 | NUR ---
DAUGHTER AT BEDSIDE. CONSENT OBTAINED FOR CHEMOTHERAPY INFUSION. BLOOD RETURN OBTAINED FROM LEFT INFUSAPORT. AREDIA 90 MG IV INFUSION STARTED TO LEFT INFUSAPORT. VSS. DENIES ANY NEEDS AT THIS TIME.
--- NOTE | 2017-01-30 16:15 | NUR ---
EXCELLENT BLOOD RETURN OBTAINED FROM LEFT INFUSAPORT. VSS. DENIES ANY NEEDS AT THIS TIME.
--- NOTE | 2017-01-30 20:15 | NUR ---
CHEMO COMPLETED IV FLUSHED WITH NS AND CAPPED.
--- NOTE | 2017-01-31 02:00 | NUR ---
PT RESTING IN BED WITH NO DISTRESS. RESPIRATIONS ARE EVEN AND UNLABORED. SIDE RAILS ARE UP X 2. BED IS IN LOWEST POSITION. CALL LIGHT IS WITHIN REACH.
[2017-01-31 02:30] VITALS: BP 136/58
[2017-01-31 05:00] VITALS: BP 142/59
[2017-01-31 06:47] LABS: BASOPHILS 0.2 % (0-2); EOSINOPHILS 3.7 % (0-7); HEMATOCRIT 25.2 % (36.0-48.0); HEMOGLOBIN 7.8 g/dL (12-16); IMMATURE GRANULOCYTES 0.2 % (0-5); LYMPHOCYTES 10.7 % (15-50); MCH 26.3 pg (26.0-34.0); MCV 84.8 fL (80.0-100.0); MEAN PLATELET VOLUME 10.7 fL (7.4-10.4); MONOCYTES 6.9 % (2-11); NEUTROPHILS 78.3 % (40-80); PLATELET COUNT 338 10x3/uL (130-400); RBC 2.97 10x6/uL (4.00-5.40); RDW 14.9 % (11.5-14.5)
[2017-01-31 07:13] LABS: ALBUMIN 1.4 g/dL (3.4-5.0); ANION GAP 10.2 mmol/L (8-16); BILIRUBIN - TOTAL 0.2 mg/dL (0.2-1.3); CALCIUM 11.5 mg/dL (8.5-10.1); CREATININE - SERUM 1.7 mg/dL (0.6-1.3); POTASSIUM - SERUM 3.2 mmol/L (3.5-5.1); PROTEIN - SERUM 5.5 g/dL (6.4-8.2)
--- NOTE | 2017-01-31 07:26 | NUR ---
FSBS 136
[2017-01-31 08:45] VITALS: BP 143/58
[2017-01-31 12:45] VITALS: BP 152/55
--- NOTE | 2017-01-31 12:49 | NUR ---
FSBS 150 NO COVERAGE GIVEN
[2017-01-31 16:32] VITALS: BP 156/67
--- NOTE | 2017-01-31 16:58 | NUR ---
FSBS 121
[2017-01-31 23:00] VITALS: BP 138/58
--- NOTE | 2017-02-01 02:35 | NUR ---
ASSISTED PATIENT UP TO THE BEDSIDE COMMODE. SHE VOIDED. ASSISTED HER BACK TO BED. SHE DENIES NEEDS. BED IN LOWEST POSITION, CALL LIGHT IN REACH. BED RIALS UP X'S 2.
[2017-02-01 05:00] VITALS: BP 134/60
--- NOTE | 2017-02-01 06:10 | NUR ---
PT REFUSED TX 0611 AM.
[2017-02-01 06:12] LABS: BASOPHILS 0.2 % (0-2); EOSINOPHILS 3.1 % (0-7); HEMATOCRIT 25.7 % (36.0-48.0); HEMOGLOBIN 7.9 g/dL (12-16); IMMATURE GRANULOCYTES 0.1 % (0-5); LYMPHOCYTES 11.2 % (15-50); MCH 25.9 pg (26.0-34.0); MCHC 30.7 g/dL (31.0-37.0); MCV 84.3 fL (80.0-100.0); MEAN PLATELET VOLUME 10.4 fL (7.4-10.4); MONOCYTES 9.2 % (2-11); NEUTROPHILS 76.2 % (40-80); PLATELET COUNT 327 10x3/uL (130-400); RBC 3.05 10x6/uL (4.00-5.40); RDW 14.9 % (11.5-14.5)
[2017-02-01 06:28] LABS: ALBUMIN 1.6 g/dL (3.4-5.0); ANION GAP 10.6 mmol/L (8-16); BILIRUBIN - TOTAL 0.2 mg/dL (0.2-1.3); CALCIUM 10.6 mg/dL (8.5-10.1); CARBON DIOXIDE 23.6 mmol/L (21.0-32.0); CREATININE - SERUM 1.5 mg/dL (0.6-1.3); POTASSIUM - SERUM 4.2 mmol/L (3.5-5.1); PROTEIN - SERUM 5.3 g/dL (6.4-8.2)
--- NOTE | 2017-02-01 09:54 | NUR ---
AWAKE AND ALERT. ORIENTED X3. NO C/O AT THIS TIME. LUNGS ARE CLEAR BILATERALLY, NO COUGH NOTED. SKIN IS INTACT WITHOUT REDNESS. THERE IS A SMALL BRUISED AREA TO LEFT FOREARM THAT IS SORE. WARMTH APPLIED TO AREA. WILL MONITOR. ATE ALMOST ALL OF BREAKFAST. DENIES NEEDS. UP TO BR WITH ASSIST.
--- NOTE | 2017-02-01 10:23 | NUR ---
PT REFUSED BREATHING TX ADMINISTRATION DUE TO NAUSEA
--- NOTE | 2017-02-01 11:30 | NUR ---
LEFT PORT PATENT WITHOUT REDNESS AT INSERTION SITE. DENIES NEEDS.
[2017-02-01 12:45] VITALS: BP 144/61
--- NOTE | 2017-02-01 12:55 | NUR ---
IV TO LEFT AC IS LEAKING. RESITED TO LEFT FOREARM AFTER ONE ATTEMPT WITH 20 GA. OLD IV D/C WITH CATHETER INTACT.
--- NOTE | 2017-02-01 13:27 | OP ---
PATIENT NAME: JOSE STEVENS MEDICAL RECORD: [id number] :[birth year] LOCATION:D.MS [address] ADMISSION DATE:01/25/17 SURGEON: JACK CRAIG MD DATE OF OPERATION: 01/30/2017 PREOPERATIVE DIAGNOSIS: Lung cancer, in need of IV access for chemotherapy. POSTOPERATIVE DIAGNOSIS: Lung cancer, in need of IV access for chemotherapy. PROCEDURES: 1. Placement of left infraclavicular PowerPort under fluoroscopic guidance. 2. Immediate surgeon interpretation of the fluoroscopic images. SURGEON: Jack Craig MD PURCHASING AND CLAIMS SUPERVISOR: None. BLOOD LOSS: Minimal. ANESTHESIA: General. COMPLICATIONS: None. The risks, possible complications, and alternatives to procedure were explained to the patient. She elects to proceed. The discussion specifically included, but was not limited to, bleeding, requiring emergency operation; infection; great vessel injury; pneumothorax. OPERATIVE COURSE: The patient was conveyed to the operating room electively on 01/30/2017. General anesthesia was induced by the anesthesia staff. The left chest and left neck were sterilely prepped and draped. A transverse incision was accomplished inferior to the left clavicle. Sharp dissection was carried down to the level of the pectoralis fascia. A subcutaneous pocket was created bluntly in a caudad direction. I then excised some of the adipose tissue from between the pectoralis fascia and the skin. I dissected in the deltopectoral groove. I identified a very small cephalic vein that was not going to accommodate the catheter. The patient was positioned in the Trendelenburg position. Through the port pocket, I accessed the left subclavian vein in an antegrade fashion. A guidewire was passed easily. This was visualized under fluoroscopy. No radiologist was present for this procedure. Static fluoroscopic images were obtained. The surgeon's interpretation of the radiographic images is dictated within the body of this operative note. Over the guidewire, dilator sheath was advanced. The dilator and wire were removed. Through the sheath, I advanced the PowerPort catheter. It was advanced to the cavoatrial junction. The catheter was shortened. It was attached to the PowerPort. The locking device was firmly engaged. The PowerPort was then placed in the subcutaneous pocket and was sutured with 3-point fixation to the underlying pectoralis muscle with 3-0 Prolene sutures. I irrigated the port pocket. There was no bleeding. The subdermis was approximated with interrupted 3-0 Vicryl. The skin was approximated with a running intracuticular 4-0 Vicryl. I then accessed the port. It accessed easily. Images were obtained over the left shoulder as well as over the mediastinum. There was no radiographic evidence of complication. No apparent kinking or twisting of the catheter. I left the port accessed. Benzoin and OPERATIVE REPORT [id number] HILDA,JOSE Steri-Strips were applied and then an occlusive dressing. The patient was then extubated and conveyed to postanesthesia care unit, where she was in stable condition. TRANSINT:[id number] Voice Confirmation ID: [id number] DOCUMENT ID: [id number] JACK CRAIG MD at 1327 CC: REDDY ALEGRIA MD and YASMEEN MASTERS MD [id number] DICTATION DATE: 01/30/17 1426 NETWORK APPLICATIONS SPECIALIST: 01/30/17 1530 ADM IN [place] [id number] [place] [address]
--- NOTE | 2017-02-01 13:27 | CN ---
PATIENT NAME:JOSE STEVENS MEDICAL RECORD: [id number] : [birth year] LOCATION:D.MS [address] ADMIT DATE: 01/25/17 ACCOUNT: [id number] CONSULTING PHYSICIAN: JACK CRAIG MD REFERRING PHYSICIAN: YASMEEN MASTERS MD DATE OF CONSULTATION: 01/28/2017 CHIEF COMPLAINT: Lung cancer. I have been asked to see the patient in consultation to place a port. The patient has lung cancer and will require a port for IV chemotherapy. I told her I will try to place on the left side, and if I was unable to place on the left side, then I will place it on the right. She is somewhat short of breath. Lying supine aggravates. Sitting up alleviates to some degree. This is a consultation note addendum. For the typed portion of the consult note, please see the chart. This will include past medical and surgical history, current medications, allergies, social history as well as family history. PHYSICAL EXAMINATION: GENERAL: The patient appears acutely ill. Also appears chronically ill. VITAL SIGNS: Reviewed. The entire physical examination was performed in the presence of female nurse. EARS: External ears appear normal. EYES: Extraocular movements are intact. NECK: Trachea is midline. CHEST: No intercostal retractions. PULMONARY: Decreased breath sounds at the left apex. Minimally labored. BACK: Mild thoracic kyphosis is present. ABDOMEN: No peritonitis with movement. EXTREMITIES: No peripheral cyanosis. IMPRESSION: Lung cancer, in need of IV access for chemotherapy. PLAN: Placement of PowerPort, left versus right. TRANSINT:[id number] Voice Confirmation ID: [id number] DOCUMENT ID: [id number] JACK CRAIG MD at 1327 CC: REDDY ALEGRIA MD and YASMEEN MASTERS MD [id number] DICTATION DATE: 01/30/17 1420 PROPERTY MANAGEMENT ASSISTANT: 01/30/17 1519 ADM IN [place] [address] [place] [id number]
[2017-02-01] MEDS ORDERED: COLACE100 MG PO (13:33)
[2017-02-01] MEDS ORDERED: CHRONULAC30 ML PO (13:33)
--- NOTE | 2017-02-01 14:30 | NUR ---
Patient Name: JOSE STEVENS Admission Status: ER Accout number: [id number] Admission Date: 01-25-2017 : 1945 Admission Diagnosis:HYPERCALCEMIA Attending: YASMEEN MASTERS Current LOS: 7 Anticipated DC Date: Planned Disposition: Home with Home Health Primary Insurance: MEDICARE A & B Discharge Planning Comments: CM met with patient to assess discharge planning needs. Patient stated that she lives independently with her daughter and her son in law and that is where she plans to return. Patient has home O2, shower chair & 4 prong cane at home. She dis not think she needed home health at this time. CM called daughter to verify patient's living arrangements with her Daughter, Katiana. Katiana stated that her will be the one to drive her home today, because she is out of town, but she wanted her mom to have home health. Referral sent to [facility] per daughters choice. JOEL signed and placed in chart. CM will continue to follow and assist with discharge planning needs. PCP: Gonzales Saab (daughter) Zack (son in law) [phone] Compliance Mgr: Linette Robert
[2017-02-01 16:56] VITALS: BP 137/58
--- NOTE | 2017-02-01 19:18 | NUR ---
DISCHARGED TO HOME WITH FAMILY AMBULATORY. DISCHARGE INSTRUCTIONS GIVEN BOTH VERBALLY AND WRITTEN. ALL QUESTIONS ANSWERED. SON VERBALIZED UNDERSTANDING OF SAME. NEEDED PRESCRIPTIONS ESCRIBED TO PHARMACY. SL TO LEFT FOREARM D/C WITH CATHETER INTACT..LEFT PORT HEPRANIZED AND DEACCESSED. ALL BELONGINGS WITH PATIENT.
== END 2017-02-01 19:19 | disposition home health service (06) | DRG 640 ==
LOC: D.ER 11:11 → D.MS 15:12
PROVIDERS: Emergency Medicine; Family Medicine; Surgery; ADMIT Emergency Medicine
PROC: 02HV33Z Insertion of Infusion Device into Superior Vena Cava, Percutaneous Approach (ICD-10-PCS; 2017-01-30)
PROC: B5181ZA Fluoroscopy of Superior Vena Cava using Low Osmolar Contrast, Guidance (ICD-10-PCS; 2017-01-30)
PROC: 0JH63WZ Insertion of Totally Implantable Vascular Access Device into Chest Subcutaneous Tissue and Fascia, Percutaneous Approach (ICD-10-PCS; principal; 2017-01-30 15:00)
DX: E83.52 Hypercalcemia (principal); G93.41 Metabolic encephalopathy; N17.9 Acute kidney failure, unspecified; C34.90 Malignant neoplasm of unspecified part of unspecified bronchus or lung; K59.00 Constipation, unspecified; Z95.1 Presence of aortocoronary bypass graft; I10 Essential (primary) hypertension; D50.9 Iron deficiency anemia, unspecified; R32 Unspecified urinary incontinence; E11.65 Type 2 diabetes mellitus with hyperglycemia; R53.1 Weakness; J44.9 Chronic obstructive pulmonary disease, unspecified; K21.9 Gastro-esophageal reflux disease without esophagitis; E78.5 Hyperlipidemia, unspecified; E87.6 Hypokalemia; E86.0 Dehydration

== ENCOUNTER 2017-05-23 08:51 | Emergency (ER) | payer MEDICARE, OTHER ==
[2017-01-26 11:15] VITALS: BMI 25.9
[~2017-05-23 08:51] MED LIST changes: +CHRONULAC30 ML PO; +COLACE100 MG PO; +ZANAFLEX2 M1 PO
[2017-05-23 09:30] LABS: BASOPHILS 0.4 % (0-2); EOSINOPHILS 2.1 % (0-7); HEMATOCRIT 36.4 % (36.0-48.0); HEMOGLOBIN 11.6 g/dL (12-16); IMMATURE GRANULOCYTES 0.3 % (0-5); LYMPHOCYTES 10.2 % (15-50); MCHC 31.9 g/dL (31.0-37.0); MCV 87.7 fL (80.0-100.0); MEAN PLATELET VOLUME 10.9 fL (7.4-10.4); MONOCYTES 7.5 % (2-11); NEUTROPHILS 79.5 % (40-80); PLATELET COUNT 299 10x3/uL (130-400); RBC 4.15 10x6/uL (4.00-5.40); RDW 14.3 % (11.5-14.5); WBC 17.2 10x3/uL (4.8-10.8)
[2017-05-23 09:37] LABS: INR 1.01 (0.85-1.17); PROTIME 12.9 SECONDS (11.6-15.0)
[2017-05-23 09:38] LABS: APTT 26.1 SECONDS (22.8-39.4)
[2017-05-23 09:42] LABS: ALBUMIN 2.2 g/dL (3.4-5.0); ALKALINE PHOSPHATASE 68 U/L (46-116); ALT (SGPT) 10 U/L (10-68); BILIRUBIN - TOTAL 0.52 mg/dL (0.2-1.3); CALC OSMOLALITY 283 mosm/kg (275-300); CALCIUM 11.1 mg/dL (8.5-10.1); CARBON DIOXIDE 24.4 mmol/L (21.0-32.0); CHLORIDE - SERUM 105 mmol/L (98-107); CREATININE - SERUM 1.3 mg/dL (0.6-1.3); GLUCOSE 146 mg/dL (74-106); POTASSIUM - SERUM 4.5 mmol/L (3.5-5.1); SODIUM 139 mmol/L (136-145); UREA NITROGEN 21 mg/dL (7-18); eGFR NON AFRICAN AMERICAN 43 mL/min (90-120)
[2017-05-23 09:53] LABS: CKMB 0.3 U/L (0.0-3.6); CREATINE KINASE 20 UL (21-215)
[2017-05-23 09:55] LABS: TROPONIN-I < 0.017 ng/mL (0.000-0.060)
[2017-05-23 11:53] LABS: UDS - AMPHET NEGATIVE QUAL (NEGATIVE); UDS - BARB NEGATIVE QUAL (NEGATIVE); UDS - BENZO NEGATIVE QUAL (NEGATIVE); UDS - COCAINE NEGATIVE QUAL (NEGATIVE); UDS - OPIATE NEGATIVE QUAL (NEGATIVE); UDS - PCP NEGATIVE QUAL (NEGATIVE); UDS - THC POSITIVE QUAL (NEGATIVE)
[2017-05-23 12:15] LABS: APPEARANCE HAZY (CLEAR); BILIRUBIN NEGATIVE (NEGATIVE); COLOR YELLOW (YELLOW); GLUCOSE NEGATIVE (NEGATIVE); KETONE SMALL mg/dL (NEGATIVE); NITRITE NEGATIVE (NEGATIVE); PROTEIN 1+ mg/dL (NEGATIVE); SPECIFIC GRAVITY 1.015 (1.005-1.020); UROBILINOGEN NORMAL (NORMAL)
[2017-05-23 12:20] LABS: EPITHELIAL CELLS 0-5 /hpf (0-5); RED CELLS - URINE RARE /hpf (0-5); WHITE CELLS - URINE RARE /hpf (0-5)
[2017-05-23 12:21] LABS: BACTERIA FEW /hpf (NONE SEEN); MUCUS <1+ /lpf (NONE SEEN); YEAST >1+ /hpf (NONE SEEN)
== END 2017-05-23 11:37 | disposition other institution (70) ==
LOC: D.ER 08:51
PROVIDERS: Family Medicine
DX: I63.9 Cerebral infarction, unspecified (principal); G81.94 Hemiplegia, unspecified affecting left nondominant side; R47.81 Slurred speech; Z85.118 Personal history of other malignant neoplasm of bronchus and lung; E11.9 Type 2 diabetes mellitus without complications; J44.9 Chronic obstructive pulmonary disease, unspecified